=== PATIENT | female | born 1980 | race Asian ===

== ENCOUNTER 2022-10-10 16:17 | Emergency (ER) | payer OTHER ==
[~2022-10-10] VITALS: Ht 157.5 cm; Wt 49.9 kg
[2022-10-10] MEDS: KETOROLAC TROMETHAMINE 30 MG INJ IVP ONE (16:30)
[2022-10-10] MEDS: IV NORMAL SALINE 1000 ML BAG IV ONE (16:31)
[2022-10-10] MEDS: ONDANSETRON 4 MG/2 ML VIAL IV ONE (16:31)
[2022-10-10] MEDS ORDERED: ONDANSETRON 4 MG/2 ML VIAL ONE (16:40)
[2022-10-10] MEDS ORDERED: KETOROLAC TROMETHAMINE 30 MG INJ ONE (16:40)
--- NOTE | 2022-10-10 17:10 | NUR ---
pt states toradol does not work for her she needs dilaudid notified ER pt requesting for us to call her primary @ [phone] KAYLENE Ordoñez called and left a message with a call back #
[2022-10-10] MEDS ORDERED: HYDROMORPHONE 1 MG/1 ML DISP.SYRIN ONE ×2 (17:33→17:59)
[2022-10-10] MEDS: HYDROMORPHONE 1 MG/1 ML DISP.SYRIN IV ONE ×2 (17:35→17:54)
[2022-10-10] MEDS ORDERED: ONDA4TAB5 PO (17:58)
[2022-10-15] MEDS ORDERED: DICY10CA13 PO (17:25)
[2022-10-15] MEDS ORDERED: ONDA4TAB5 PO (17:25)
[2022-10-15] MEDS ORDERED: NITR100C6 PO (17:25)
== END 2022-10-10 18:28 | disposition home or self-care (01) ==
LOC: ER 16:17
DX: R51.9 Headache, unspecified (principal); Z88.8 Allergy status to other drugs, medicaments and biological substances; Z88.5 Allergy status to narcotic agent
CPT/HCPCS: A4663; J1170; J1885; J2405; J7040

== ENCOUNTER 2022-10-11 12:14 | Emergency (ER) | payer OTHER ==
[~2022-10-11] VITALS: Ht 157.5 cm; Wt 49.9 kg
[~2022-10-11 12:14] MED LIST: ONDA4TAB5 PO
--- NOTE | 2022-10-11 12:35 | NUR ---
Dr Abreu at the bedside for MSE.
[2022-10-11] MEDS ORDERED: HYDROMORPHONE 1 MG/1 ML DISP.SYRIN IV ONE ×3 (12:45→16:30)
[2022-10-11] MEDS ORDERED: IV NORMAL SALINE 1000 ML BAG IV ONE (12:45)
[2022-10-11] MEDS ORDERED: ONDANSETRON 4 MG/2 ML VIAL IV ONE ×3 (12:45→16:30)
[2022-10-11] MEDS ORDERED: ONDANSETRON 4 MG/2 ML VIAL ONE ×3 (13:33→16:53)
[2022-10-11] MEDS ORDERED: HYDROMORPHONE 1 MG/1 ML DISP.SYRIN ONE ×3 (13:33→16:54)
[2022-10-11] MEDS ORDERED: PROMETHAZINE HCL 25 MG TABLET PO PRN (13:45)
--- NOTE | 2022-10-11 14:18 | NUR ---
HL on RAC inflitrated, removed HL and placed ice on the site.
[2022-10-11] MEDS ORDERED: diphenhydrAMINE 25 MG CAP PO ONE (14:45)
[2022-10-11] MEDS ORDERED: diphenhydrAMINE 50 MG/1 ML VIAL ONE ×2 (15:10→16:53)
[2022-10-11] MEDS ORDERED: diphenhydrAMINE 50 MG/1 ML VIAL IV ONE ×2 (15:15→16:30)
[2022-10-11] MEDS ORDERED: KETOROLAC TROMETHAMINE 15 MG INJ IVP ONE (16:30)
[2022-10-11] MEDS ORDERED: KETOROLAC TROMETHAMINE 15 MG INJ ONE (16:54)
--- NOTE | 2022-10-11 17:36 | NUR ---
IV removed. Catheter intact and site benign. Pressure and 4x4 gauze applied to site. No bleeding noted.
--- NOTE | 2022-10-11 17:38 | NUR ---
Patient discharged to home in stable condition. Written and verbal after care instructions given. Patient verbalizes understanding of instructions. Stressed follow up or return to ER for worsening s/s Pt left ER w/ steady gait accompained by mother.
[2022-10-11 17:39] VITALS: BP 129/80
== END 2022-10-11 17:40 | disposition home or self-care (01) ==
LOC: ER 12:14
DX: G43.909 Migraine, unspecified, not intractable, without status migrainosus (principal); Z88.5 Allergy status to narcotic agent
CPT/HCPCS: 99284; 96374; 96375; 96361; 76937; 96376; J1200 ×2; J1885; J2405 ×3; J1170 ×3; J7040; A4663

== ENCOUNTER 2022-10-12 07:08 | Emergency (ER) | payer SELFPAY ==
--- NOTE | 2022-10-12 07:25 | NUR ---
Pt left w/o being triaged.
[2022-10-13] MEDS ORDERED: HYDR4TAB4 PO (02:37)
== END 2022-10-12 07:26 | disposition left against medical advice (07) ==
LOC: ER 07:08
DX: Z53.21 Procedure and treatment not carried out due to patient leaving prior to being seen by health care provider (principal)

== ENCOUNTER 2022-10-12 18:40 | Inpatient (IN) | payer OTHER ==
[~2022-10-12] VITALS: Ht 154.9 cm; Wt 54.4 kg
--- NOTE | 2022-10-12 20:51 | NUR ---
IN BED, V/S 131/88, HR 100, 100%
--- NOTE | 2022-10-12 21:39 | NUR ---
pt. is seen and examined by Dr. Lopes.
[2022-10-12] MEDS ORDERED: HYDROMORPHONE 1 MG/1 ML DISP.SYRIN ONE ×2 (21:54→23:24)
[2022-10-12] MEDS ORDERED: HYDROMORPHONE 1 MG/1 ML DISP.SYRIN IV ONE ×2 (22:00→23:30)
[2022-10-12] MEDS ORDERED: IV NORMAL SALINE 1000 ML BAG IV ONE (22:00)
[2022-10-12] MEDS ORDERED: diphenhydrAMINE 50 MG/1 ML VIAL IV ONE (22:15)
[2022-10-12] MEDS ORDERED: diphenhydrAMINE 50 MG/1 ML VIAL ONE (22:22)
[2022-10-12 22:31] LABS: CREATININE 0.7 mg/dL (0.6-1.3); HEMATOCRIT 45.8 % (31.2-41.9); MEAN CORPUSCULAR HEMOGLOBIN 30.4 uug (24.7-32.8); MEAN CORPUSCULAR VOLUME 90.8 fL (75.5-95.3); PLATELET COUNT (AUTO) 385 K/uL (179-408); POTASSIUM 3.7 mmol/L (3.5-5.1)
--- NOTE | 2022-10-12 23:20 | NUR ---
collected urine and sent to lab
[2022-10-12] MEDS ORDERED: ONDANSETRON 4 MG/2 ML VIAL ONE (23:24)
[2022-10-12 23:27] LABS: *BILIRUBIN,URIN NEGATIVE (NEGATIVE); *BLOOD, URINE 3+ (NEGATIVE); *CLARITY,URINE SLIGHTLY CLOUDY (CLEAR); *COLOR,URINE LIGHT YELLOW (YELLOW); *KETONES,URINE 2+ (NEGATIVE); *UROBILINOGEN,URINE 0.2 E.U./dl (NORMAL); LEUKOCYTE ESTERASE ,URINE TRACE (NEGATIVE); NITRITE, URINE NEGATIVE (NEGATIVE); UGLUCOSE NEGATIVE (NEGATIVE)
[2022-10-12 23:28] LABS: *URINE HCG, QUAL NEGATIVE (NEGATIVE)
[2022-10-12] MEDS ORDERED: ONDANSETRON 4 MG/2 ML VIAL IV ONE (23:30)
[2022-10-12 23:59] LABS: BACTERIA,URINE MANY /HPF (NONE SEEN); SQUAMOUS EPITHELIAL CELL,UR MANY /HPF (NONE SEEN)
[2022-10-13] MEDS ORDERED: DEXAMETHASONE SOD PHOSPHATE 4 MG INJ IV ONE (00:45)
[2022-10-13] MEDS ORDERED: DEXAMETHASONE SOD PHOSPHATE 10 MG INJ ONE (00:54)
--- NOTE | 2022-10-13 01:03 | NUR ---
Asked for food, offered tuna sandwich and water
--- NOTE | 2022-10-13 01:21 | NUR ---
collected covid test sent to lab
--- NOTE | 2022-10-13 01:31 | NUR ---
Ok to be admitted, called [facility] for call panel, awaiting for call back from [facility]
[2022-10-13] MEDS ORDERED: ACETAMINOPHEN 325 MG TABLET PO PRN (02:00)
[2022-10-13] MEDS ORDERED: TEMAZEPAM 15 MG CAPSULE PO PRN (02:00)
[2022-10-13] MEDS ORDERED: MAGNESIUM HYDROXIDE 30 ML LIQUID UDC PO PRN (02:00)
[2022-10-13] MEDS ORDERED: REMEDY ESSENTIAL ZINC PASTE 113 GM TP PRN (02:00)
[2022-10-13] MEDS ORDERED: IV NS 1000 ML 1,000 ML IV PRN (02:00)
[2022-10-13] MEDS ORDERED: ONDANSETRON 4 MG/2 ML VIAL IV PRN (02:00)
[2022-10-13] MEDS ORDERED: HYDR4TAB4 PO (02:37)
--- NOTE | 2022-10-13 02:37 | NUR ---
Called [facility]. Pt. will be transferred to [address] [facility].
--- NOTE | 2022-10-13 03:04 | NUR ---
called 24 hr pharmacy, to verify dilaudid prn for pain, pt. is requesting, c/o headache 05/07 noted.
[2022-10-13] MEDS ORDERED: HYDROMORPHONE 1 MG/1 ML DISP.SYRIN ONE (03:06)
[2022-10-13] MEDS: HYDROMORPHONE 1 MG/1 ML DISP.SYRIN IV PRN ×7 (03:07→21:47)
--- NOTE | 2022-10-13 03:22 | NUR ---
transferred pt to [facility]
[2022-10-13 04:00] VITALS: BP 127/81
--- NOTE | 2022-10-13 05:01 | NUR ---
@ 03:24AM 42 Y/O FEMALE PATIENT RECEIVED FROM ER VIA GURNEY IN STABLE CONDITION TO ADMIT TO [facility] OF DR. RANGEL WITH DX OF INTRACTABLE HEADACHE.PATIENT HAS HX OF HEADACHE .PATIENT IS ALERT ORIENTED X4. BREATHING EVEN AND UNLABORED. NO SOB OR RESPIRATORY DISTRESS NOTED. PATIENT IS AMBULATORY. ALL NEEDS MET AND ATTENDED. CALL LIGHT IN REACH. PATIENT KEPT CLEAN DRY AND COMFORTABLE. V/S TAKEN AND NOTED WNL.
[2022-10-13] MEDS: PANTOPRAZOLE SODIUM 40 MG TABLET.DR PO SCH (07:15)
[2022-10-13] MEDS: NITROFURANTOIN/NITROFURAN MAC 100 MG CAPSULE PO SCH ×2 (10:30→20:45)
[2022-10-13 11:32] VITALS: BP 116/42
[2022-10-13] MEDS: diphenhydrAMINE 50 MG/1 ML VIAL IV PRN ×2 (12:16→20:45)
[2022-10-13] MEDS ORDERED: MAGNESIUM SULFATE/D5W 100 ML IV SCH (13:30)
[2022-10-13] MEDS ORDERED: SUMATRIPTAN SUCCINATE 6 MG/0.5 ML VIAL SQ ONE (13:30)
[2022-10-13] MEDS ORDERED: DIVALPROEX 500 MG TABLET.DR PO ONE (13:30)
[2022-10-13 16:16] VITALS: BP 120/81
--- NOTE | 2022-10-13 19:44 | NUR ---
IV INFILTRATED..WILL RESTART MATIAS
[2022-10-13 20:48] VITALS: BP 131/82
[2022-10-14] MEDS: HYDROMORPHONE 1 MG/1 ML DISP.SYRIN IV PRN ×5 (02:40→20:16)
[2022-10-14] MEDS: diphenhydrAMINE 50 MG/1 ML VIAL IV PRN ×3 (03:51→17:37)
--- NOTE | 2022-10-14 04:37 | NUR ---
AAOx4 Ambulatory ad james. Admitted for intractable headaches. VSS No acute distress noted. Right upper arm midline placed under sterile technique by midline nurse. Dilaudid 1 mg IV given for pain. Will monitor patient. Kept comfortable. Benadryl 25 mg IV given as well as needed.
[2022-10-14 05:46] VITALS: BP 113/61
[2022-10-14] MEDS: PANTOPRAZOLE SODIUM 40 MG TABLET.DR PO SCH (06:13)
[2022-10-14 07:37] LABS: MEAN CORPUSCULAR HEMOGLOBIN 30.2 uug (24.7-32.8); MEAN CORPUSCULAR VOLUME 92.3 fL (75.5-95.3); PLATELET COUNT (AUTO) 242 K/uL (179-408)
[2022-10-14 08:00] LABS: CREATININE 0.7 mg/dL (0.6-1.3); MAGNESIUM 2.1 mg/dL (1.8-2.4); PHOSPHOROUS 3.2 mg/dL (2.5-4.9); POTASSIUM 3.8 mmol/L (3.5-5.1)
[2022-10-14] MEDS ORDERED: MAGNESIUM SULFATE/D5W 100 ML IV SCH (10:00)
[2022-10-14] MEDS ORDERED: DEXAMETHASONE SOD PHOSPHATE 10 MG INJ IV ONE (10:00)
[2022-10-14] MEDS ORDERED: DIVALPROEX 500 MG TABLET.DR PO ONE (10:00)
[2022-10-14] MEDS: NITROFURANTOIN/NITROFURAN MAC 100 MG CAPSULE PO SCH ×2 (11:04→20:15)
[2022-10-14] MEDS ORDERED: DEXT20TA6 PO (12:52)
[2022-10-14] MEDS: PHENAZOPYRIDINE HCL 100 MG TABLET PO SCH ×2 (15:25→22:05)
[2022-10-14 19:46] VITALS: BP 122/76
[2022-10-14] MEDS ORDERED: PHENAZOPYRIDINE HCL 100 MG TABLET ONE ×2 (21:52→23:05)
[2022-10-14 23:59] VITALS: BP 126/80
[2022-10-15] MEDS: diphenhydrAMINE 50 MG/1 ML VIAL IV PRN ×5 (00:07→22:52)
[2022-10-15] MEDS: HYDROMORPHONE 1 MG/1 ML DISP.SYRIN IV PRN ×6 (00:13→22:52)
[2022-10-15 04:31] VITALS: BP 118/72
[2022-10-15] MEDS: PHENAZOPYRIDINE HCL 100 MG TABLET PO SCH ×3 (06:00→22:41)
[2022-10-15] MEDS: PANTOPRAZOLE SODIUM 40 MG TABLET.DR PO SCH (06:00)
--- NOTE | 2022-10-15 06:36 | NUR ---
AAOx4 Condition unchanged. No acute distress noted. On dilaudid 1 mg IV q4hr. Right upper midline flushed and patent. Benadryl 25 mg IV given as well. Needs attended. VSS.
[2022-10-15] MEDS: NITROFURANTOIN/NITROFURAN MAC 100 MG CAPSULE PO SCH ×2 (07:59→21:29)
--- NOTE | 2022-10-15 08:14 | NUR ---
in to give dilaudid pt refused ant this time. wasted in [facility] with tony chau. called duane in pharmacy because by mistake the waste was recorded as 0. but 1mg dilaudid was wasted. he advised to make a note
[2022-10-15 11:42] VITALS: BP 107/61
[2022-10-15 16:00] VITALS: BP 120/73
[2022-10-15] MEDS ORDERED: ONDA4TAB5 PO (17:25)
[2022-10-15] MEDS ORDERED: DICY10CA13 PO (17:25)
[2022-10-15] MEDS ORDERED: NITR100C6 PO (17:25)
[2022-10-15] MEDS: DICYCLOMINE HCL 10 MG CAPSULE PO SCH ×2 (17:38→23:00)
[2022-10-15 20:26] VITALS: BP 127/77
[2022-10-15] MEDS ORDERED: PHENAZOPYRIDINE HCL 100 MG TABLET ONE (22:13)
[2022-10-16 04:05] VITALS: BP 121/76
[2022-10-16] MEDS: DICYCLOMINE HCL 10 MG CAPSULE PO SCH ×2 (05:39→12:06)
[2022-10-16] MEDS: HYDROMORPHONE 1 MG/1 ML DISP.SYRIN IV PRN ×2 (05:40→12:06)
[2022-10-16] MEDS: PHENAZOPYRIDINE HCL 100 MG TABLET PO SCH (05:41)
[2022-10-16] MEDS: diphenhydrAMINE 50 MG/1 ML VIAL IV PRN ×2 (05:41→12:06)
[2022-10-16] MEDS: PANTOPRAZOLE SODIUM 40 MG TABLET.DR PO SCH (06:48)
[2022-10-16 07:42] LABS: HEMATOCRIT 39.9 % (31.2-41.9); MEAN CORPUSCULAR HEMOGLOBIN 30.1 uug (24.7-32.8); PLATELET COUNT (AUTO) 269 K/uL (179-408)
[2022-10-16 07:44] LABS: CREATININE 0.8 mg/dL (0.6-1.3); MAGNESIUM 2.1 mg/dL (1.8-2.4); PHOSPHOROUS 4.6 mg/dL (2.5-4.9); POTASSIUM 4.1 mmol/L (3.5-5.1)
[2022-10-16] MEDS: NITROFURANTOIN/NITROFURAN MAC 100 MG CAPSULE PO SCH (10:35)
[2022-10-16 11:38] VITALS: BP 112/78
--- NOTE | 2022-10-16 13:00 | NUR ---
Patient is stable and is waiting for her boyfriend to pick her up from the hospital. No complains
--- NOTE | 2022-10-16 14:24 | NUR ---
Patient has left home with her boyfriend. She was walking and was stable.
[2022-10-18] MEDS ORDERED: IV NORMAL SALINE 250 ML IV ONE (01:01)
[2022-10-18] MEDS ORDERED: SWABABLE VALVE TRANSFER SET EA MC ONE (01:01)
[2022-10-18] MEDS ORDERED: IOHEXOL 350 100 ML INFUS..BTL ONE (01:01)
== END 2022-10-16 13:45 | disposition home or self-care (01) | DRG 103 ==
LOC: ER 18:40 → MEDSURG3 10-13 02:10
PROVIDERS: ADMIT Nurse Practitioner Family; ATTEND Nurse Practitioner Family
PROC: 05H533Z Insertion of Infusion Device into Right Subclavian Vein, Percutaneous Approach (ICD-10-PCS; principal; 2022-10-13)
PROC: B546ZZA Ultrasonography of Right Subclavian Vein, Guidance (ICD-10-PCS; 2022-10-13)
DX: G43.101 Migraine with aura, not intractable, with status migrainosus (principal); N39.0 Urinary tract infection, site not specified; E87.1 Hypo-osmolality and hyponatremia; E86.0 Dehydration; Z20.822 Contact with and (suspected) exposure to COVID-19; B96.20 Unspecified Escherichia coli [E. coli] as the cause of diseases classified elsewhere
CPT/HCPCS: 36415; 70450; 83735; 84100; 84703; 85025; 85730; A4663; G0378; J1100; J1170; J1200; J2405; J3030; J3475; J7040; Q9967

== ENCOUNTER 2022-10-17 17:16 | Emergency (ER) | payer OTHER ==
[~2022-10-17] VITALS: Ht 152.4 cm; Wt 52.2 kg
[~2022-10-17 17:16] MED LIST changes: +DEXT20TA6 PO; +DICY10CA13 PO; +HYDR4TAB4 PO; +NITR100C6 PO
--- NOTE | 2022-10-17 22:56 | NUR ---
Patient placed in room 4b at this time
[2022-10-17] MEDS ORDERED: diphenhydrAMINE 50 MG/1 ML VIAL IV ONE (23:15)
[2022-10-17] MEDS ORDERED: HYDROMORPHONE 1 MG/1 ML DISP.SYRIN IV ONE (23:15)
[2022-10-17] MEDS ORDERED: IV NS 1000 ML 1,000 ML IV ONE (23:15)
[2022-10-17] MEDS ORDERED: ONDANSETRON 4 MG/2 ML VIAL IV ONE (23:15)
--- NOTE | 2022-10-17 23:18 | NUR ---
Patient lying in bed with c/o migraine headache, family at bedside, informed of plan of care at this time. 2 attempts made to establishe saline lock, unable to do so at this time will inform MD.
[2022-10-17] MEDS ORDERED: ONDANSETRON 4 MG/2 ML VIAL ONE (23:46)
[2022-10-17] MEDS ORDERED: diphenhydrAMINE 50 MG/1 ML VIAL ONE (23:47)
[2022-10-17] MEDS ORDERED: HYDROMORPHONE 1 MG/1 ML DISP.SYRIN ONE (23:47)
--- NOTE | 2022-10-18 00:01 | NUR ---
#20g has been established in left lower arm area, patient has been medicated as per order, NS infusing as per order, will continue to monitor.
--- NOTE | 2022-10-18 00:36 | NUR ---
pain slightly better, MD at bedside talking with patient. Patient has been informed that she will be discharged.
[2022-10-18] MEDS ORDERED: HYDROMORPHONE 1 MG/1 ML DISP.SYRIN ONE ×3 (00:43→05:53)
[2022-10-18] MEDS ORDERED: HYDROMORPHONE 1 MG/1 ML DISP.SYRIN IV ONE ×3 (00:45→05:45)
--- NOTE | 2022-10-18 00:48 | NUR ---
Patient was medicated for pain as per order, patient aware MD ordered a CT of brain.
[2022-10-18] MEDS ORDERED: ONDANSETRON 4 MG/2 ML VIAL ONE (01:37)
--- NOTE | 2022-10-18 01:43 | NUR ---
patient to CT via rney at this time.
[2022-10-18] MEDS ORDERED: ONDANSETRON 4 MG/2 ML VIAL IV ONE (01:45)
--- NOTE | 2022-10-18 02:35 | NUR ---
PATIENT HAS RETURNED FROM CT AWAITING MD REVIEW.
--- NOTE | 2022-10-18 03:38 | NUR ---
PATIENT AMBULATED TO BATHROOM AND BACK TO BED. NO S/S OF ANY DISTRESS NOTED PATIENT IS REQUESTING ANOTHER DOSE OF HER 3 PRIOR MEDICATIONS, WILL INFORM MD.
--- NOTE | 2022-10-18 05:13 | NUR ---
Up out of bed ambulating around unit, no s/s of any distress noted, awaiting MD re-evaluation.
--- NOTE | 2022-10-18 05:50 | NUR ---
MD AT BESIDE TALKING WITH PATIENT. 103/[id number]% ON ROOM AIR.
--- NOTE | 2022-10-18 06:01 | NUR ---
PATIENT MEDICATED PER ORDER AT THIS TIME. SALINE LOCK REMOVED AND PATIENT AWAITING D/C INSTRUCTIONS.
--- NOTE | 2022-10-18 06:11 | NUR ---
ACI GIVEN, STATES UNDERSTANDING, REMAINS STABLE FOR DISCHARGE HOME.
[2022-10-18 06:12] VITALS: BP_SYST 103
== END 2022-10-18 06:13 | disposition home or self-care (01) ==
LOC: ER 17:16
DX: G43.909 Migraine, unspecified, not intractable, without status migrainosus (principal); Z88.5 Allergy status to narcotic agent; Z88.8 Allergy status to other drugs, medicaments and biological substances
CPT/HCPCS: 99285; 96374; 96375; 70496; 96376; J1200; J2405 ×2; J1170 ×4; Q9967; J7040; A4663